=== PATIENT | male | born 1940 | race American Indian/Alaskan Native ===

== ENCOUNTER 2021-02-16 10:35 | Emergency (ER) | payer MEDICARE ==
--- NOTE | 2021-02-16 12:10 | Emergency Department Report ---
HPI - General Chief Complaint: Abdominal Pain Time Seen by Provider: 02/16/21 11:07 - HPI HPI: 81-year-old male with history of hypertension, prostate problems, and right- sided inguinal hernia presents complaining of inability to reduce his right inguinal hernia when he woke up this morning. Patient states that he noticed a big bulge in his right groin and testicle this morning. He says this has been happening to him intermittently for the past 2 years but normally when he massages his testicle the hernia reduces. However, despite massage the hernia remained. He denies ever developing any abdominal pain, testicular pain, nausea, fever/chills, dysuria, hematuria, discharge, or any other complaints. When he arrived to the emergency department the hernia had spontaneously reduced. He now has no complaints ED Past Medical Hx - Past Medical History Hx Hypertension: Yes Hx Congestive Heart Failure: No Hx Diabetes: No Hx Asthma: No Hx COPD: No Additional medical history: High cholesterol, Right inguinal hernia - Surgical History Additional Surgical History: Ribs- fall - Social History Smoking Status: Never Smoker - Medications Home Medications: Home Medications Medication Instructions Recorded Confirmed Last Taken Type Amlodipine Besylate [Norvasc] 1 tab PO DAILY 03/21/14 03/21/14 03/21/14 History Pravastatin Sodium [Pravastatin] 1 tab PO QHS 03/21/14 03/21/14 03/20/14 History Aspirin [Aspirin BABY CHEW TAB] 81 mg PO QDAY #30 tab.chew 03/22/14 Unknown Rx ED Review of Systems ROS: Stated complaint: ABD PAIN Other details as noted in HPI Constitutional: denies: chills, fever Eyes: denies: eye pain, vision change ENT: denies: throat pain, congestion Respiratory: denies: cough, shortness of breath Cardiovascular: denies: chest pain, palpitations Gastrointestinal: denies: abdominal pain, nausea, vomiting, diarrhea Genitourinary: other (Right inguinal hernia). denies: dysuria, frequency, hematuria, discharge, testicular pain Musculoskeletal: denies: back pain, joint swelling Skin: denies: rash, lesions Neurological: denies: headache, weakness, numbness Physical Exam - Physical Exam Vital Signs: Vital Signs 02/16/21 02/16/21 11:41 11:46 Temperature 97.7 F Pulse Rate 78 71 Respiratory 11 L 14 Rate Blood Pressure 151/94 [Left] O2 Sat by Pulse 96 95 Oximetry Physical Exam: GENERAL: Well developed and well nourished. No acute distress HEAD: Normocephalic. No obvious signs of trauma. ENT: Moist mucous membranes. EYES: Extraocular movements are intact. Pupils are equal round and reactive to light bilaterally NECK: Supple. Full ROM is intact. Trachea is midline. LUNGS: Nonlabored breathing. Equal chest rise bilaterally. Clear to auscultation bilaterally. CARDIOVASCULAR: Regular rate and rhythm. No murmurs or rubs. VASCULAR: Cap refill < 2 seconds ABDOMEN: Abdomen is soft and nondistended. There is no significant tenderness, guarding or rebound. : Normal appearing male genitalia with bulging at the right inguinal area consistent with hernia. The hernia defect can be palpated on testicular exam. There is no incarceration. No testicular tenderness. Normal testicular lie. Intact cremasteric reflexes bilaterally SKIN: Skin is warm and dry NEURO: Patient is awake, alert, and oriented. maintenance mechanic helper II-XII grossly intact. No focal deficits. Normal speech. MUSCULOSKELETAL: No obvious deformities. No significant tenderness. Normal ROM throughout. BACK/SPINE: No costovertebral angle tenderness. ED Course Vital Signs 02/16/21 02/16/21 11:41 11:46 Temperature 97.7 F Pulse Rate 78 71 Respiratory 11 L 14 Rate Blood Pressure 151/94 [Left] O2 Sat by Pulse 96 95 Oximetry ED Medical Decision Making - Medical Decision Making 81-year-old male with history of prostate problems and right inguinal hernia which normally occurs intermittently and is easily reducible presents after it became incarcerated for several hours this morning. He never developed any pain or nausea to suggest strangulation. The hernia reduced spontaneously upon arrival to our emergency department. On initial assessment he is afebrile with normal vital signs. Physical examination reveals no abdominal tenderness. He has normal male external genitalia with normal testicular lie and intact cremasteric reflexes bilaterally. He has bulging of the right inguinal area and palpable right inguinal hernia but no bulging hernia sac at this time. The patient was educated about the possibility of inguinal hernias becoming incarcerated and eventually strangulated and he was advised to follow-up with a general surgeon to discuss surgical repair. He was also advised to return to the emergency department immediately should his symptoms recur should he develop significant pain or any other new concerns. The patient expressed understanding and agreement with the plan of care. Critical care attestation.: If time is entered above; I have spent that time in minutes in the direct care of this critically ill patient, excluding procedure time. ED Disposition Clinical Impression: Reducible right inguinal hernia Disposition: 01 HOME / SELF CARE / HOMELESS Is pt being admited?: No Condition: Stable Instructions: Inguinal Hernia, Adult, Laparoscopic Inguinal Hernia Repair, Adult Additional Instructions: Please follow-up with a general surgeon to discuss surgical repair of your right-sided hernia. Should your hernia popped out again and not be able to go back in or should you develop significant pain or nausea/vomiting return to the emergency department. Also return to the emergency department should you develop continued symptoms or any other new concerns. Referrals: ALEXI CLAY MD [Staff Physician] - 3-5 Days [facility] [Provider Group] - 3-5 Days
[2021-02-16 13:16] VITALS: BP 147/79
== END 2021-02-16 13:14 | disposition home or self-care (01) ==
LOC: ED 10:35
DX: K40.90 Unilateral inguinal hernia, without obstruction or gangrene, not specified as recurrent (principal); I10 Essential (primary) hypertension; E78.00 Pure hypercholesterolemia, unspecified; Z98.890 Other specified postprocedural states
CPT/HCPCS: 99282; 99283